=== PATIENT | female | born 1980 | race Caucasian/White ===

== ENCOUNTER 2019-10-02 08:36 | Inpatient (IN) | payer OTHER ==
--- NOTE | 2019-10-02 11:49 | HP ---
General Information - Reason for Visit Prelabor rupture of membranes - General Information Maternal Age: 39 Grav: 3 Para: 1 SAB: 1 IEA: 0 Estimated Due Date: 10/15/19 Maternal Blood Type and Rh: A Positive - Results this Serology/RPR Result: Non-Reactive Rubella Result: Immune HBsAg Result: Negative HIV Result: Negative GBS Culture Result: Negative Past Medical History Delivery History: Hx Uncomplicated Vaginal Delivery Pertinent Past Medical History: See Records Past Medical History Comment: Anorexia, last treated prior to 2014. Osteopenia, r/t hx anorexia Heterozygous Factor V Leiden Pertinent Past Surgical History: None Pertinent Family History: See Records Family History Comment: Mother: Factor V Leiden - Antepartal Records Antepartal Records: Reviewed, Complicated by: - Age 40, Anemia on Fe supplementation, inadequate weight gain Review of Systems Constitutional: Comfortable CV Complaint: No Respiratory: Shortness of Breath: No Gastrointestinal: No Nausea/Vomiting, Normal Bowel Movement Genitourinary: Leaking Fluid, No Dysuria, No Bleeding Musculoskeletal: No Epigastric Pain, Contractions - mild Neurological: No Headache, No Visual Changes Movement: Normal Exam Allergies/Adverse Reactions: Allergies Penicillins Allergy (Verified 10/02/19 09:03) Rash B/P: 118/76, P: 52, R: 18, T: 98.1 Lab Values - Entire Visit: Laboratory Tests 10/02/19 09:35 Vag Amniotic Fld Detect Positive - Measurements Height: 5 ft Weight: 116 lb Weight in lbs: [phone] Body Mass Index (BMI): 22.6 Pre- Weight: 96 lb Weight Gained This : 20 lbs and 0 ozs - Exam Breast: Breast Exam Deferred CVA: No CVA Tenderness Extremities: No Edema Heart: Normal Rhythm/Heart Sounds HEENT: No Significant Findings Lungs: Clear Bilaterally Reflexes: DTR 2+ Thyroid: No Thyromegaly - Abdominal Exam Abdomen Exam: Non-Tender, Fundal Height Consistent with Dates - Ultrasound/Biophysical Profile Ultrasound Status: Not Done Targeted Exam Findings See L&D Outpatient Visit Provider Note for Findings: N/A Estimated Weight: 5.5 lb by nita's Membrane Status: SROM Amniotic Fluid Evaluation: Gross Rupture, Positive ROM Plus Bleeding/Discharge: None EFM Findings - External Monitor Findings Baseline Heart Rate: 130 External Monitor Findings: Accelerations Present, No Pattern of Variable or Late Decelerations, Variability Moderate, Baseline Stable Contractions: Irregular, 45-90 Seconds Assessment/Plan - Assessment A: IUP at 38 1/7 weeks Category I FHR, no evidence of metabolic acidemia GBS negative +SROM Not yet in labor P: Admit to inpatient Reviewed options, including Pitocin augmentation, Cedric prefers to avoid medication at this time. Would like to proceed with nipple stimulation, advised 2 min on, 1 min off x 4, rest 20-30 min, repeat Discussed risks of prolonged rupture of membranes, including chorioamnionitis, NICU admission q2hr temperatures Cervical exam once in active labor or if change in plan of care Reassess 3-4 hrs or sooner as indicated - Plan Plan: Admit - Anticipate Vaginal Delivery - Date/Time of Admission Date of Admission: 10/02/19 Time of Admission: 10:00
[2019-10-02 14:22] LABS: Urine Benzodiazepine Screen None Detected (None Detect); Urine Opiates Screen None Detected (None Detect)
--- NOTE | 2019-10-02 14:50 | PN ---
Progress Note - Progress Note Date of Service: 10/02/19 Note: S: Reports UCs still far apart, but getting stronger. Occasionally having to breathe through them. Notes small amount of blood in vaginal mucous O: B/P: 91/57, P: 56, R: 18, T: 98.9 FHR: 140s by intermittent auscultation UCs: Irregular, mild-moderate to palpation VE deferred A: IUP at 38 1/7 weeks No evidence of metabolic acidemia SROM x 10 hrs and not in active labor P: Revisited possibility of augmentation with either pitocin, cytotec or cervidil; Cedric declines at this time Encouraged position changes, ambulation, ball Continue temperature q2hr Reassess PRN
--- NOTE | 2019-10-02 17:53 | PN ---
Progress Note - Progress Note Date of Service: 10/02/19 Note: S: Still able to talk through UCs, ready for cervical exam to assess progress O: B/P: 91/57, P: 56, R: 18, T: 98.7 FHR: baseline 125, moderate variability, + accelerations, early decelerations UCs: q 2-15 min VE: 1/80/-1, vertex. Clear fluid noted A: IUP at 38 1/7 weeks category I FHR, no evidence of metabolic acidemia early labor ROM x 12.5 hrs P: Discussed implications of early labor, difficulty in assessing how long until baby comes Cedric continues to decline augmentation at this time Benefits of position changes reinforced by RN Reassess PRN Anticipate SVB
--- NOTE | 2019-10-02 20:54 | PN ---
Progress Note - Progress Note Date of Service: 10/02/19 Note: S: Reports UCs getting more intense, were 8-10 minutes, now closer to 3-5 minutes. Having to breathe through contractions. Reports low back pain with UCs as well as some increased pelvic pressure O: B/P: 102/60, P: 55, R: 18, T: 98.9 FHR: 135 by intermittent auscultation VE deferred A: IUP at 38 1/7 weeks No evidence of metabolic acidemia P: Discussed normal course of labor, heat therapy for back pain; counter pressure applied Cedric declines tub for now Encouraged to call if urge to push Reassess PRN Anticipate SVB
[2019-10-02] MEDS ORDERED: Witch Hazel PAD* JAR TOPICAL PRN (21:57)
[2019-10-02] MEDS ORDERED: Dibucaine 1% 28.35 GM TUBE PR PRN (21:57)
[2019-10-02] MEDS ORDERED: Acetaminophen TAB* 325 MG PO PRN (21:57)
[2019-10-02] MEDS ORDERED: Glycerin ADULT SUPP PR PRN (21:57)
[2019-10-02] MEDS ORDERED: Lactated Ringers 1000 ML Bag* 1,000 ML IV SCH (22:00)
--- NOTE | 2019-10-02 22:30 | PROCNOTE ---
[facility] OB: Delivery Note - Delivery A Date of : 10/02/19 Time of : 21:34 Bon[place] Sex: Male Score 1 Minute: 9 Score 5 Minutes: 9 Gestational Age in Weeks and Days at Delivery: 38 Weeks and 1 Days Delivery Method: Spontaneous Vaginal Labor: Spontaneous Did Patient attempt ?: N/A, No Previous Amniotic Fluid: Clear Estimated Blood Loss: 250 Anesthesia/Analgesia: None Delivered By: Jennifer Demarco - Nursery Level of Nursery: Regular/Bedside - Perineum Perineal Injury: Abrasion Only - Not Repaired Perineal Injury Comment: left sublabial Perineal Repair: None - Events Delivery Events of Note: Precipitous Delivery - Additional Delivery Notes Additional Delivery Notes: experienced SROM to clear fluid at 0500. Progressed to complete and complete, began pushing at 2127 in hands-knees. Slow, controlled delivery of head at 2134, AGUILAR. Tight shoulders noted, mother assisted to McRobert's position, shoulders delivered in transverse position with strong maternal effort. Male vigorous, HR > 110, spontaneous cry noted, delivered to maternal abdomen. Spontaneous lulu placenta at 2146, fundus firm with massage. Vagina and perineum carefully inspected, perineum intact and left labial abrasion noted. Hemostatic, no repair necessary. Mother and stable at time of note, feeding plan is breast. EBL = 250 cc
[2019-10-02] MEDS: Ibuprofen TAB* 600 MG PO SCH (22:33)
[2019-10-02] MEDS ORDERED: Ammonia Inhalant* 1 EA AMP ONE (23:31)
[2019-10-03] MEDS: Ibuprofen TAB* 600 MG PO SCH ×2 (07:02→10:50)
[2019-10-03 07:19] LABS: ABS Basophils 0.1 10^3/ul (0-0.2); ABS Eosinophils 0.1 10^3/ul (0-0.6); ABS Lymphocytes 1.3 10^3/ul (1.0-4.8); ABS Monocytes 0.8 10^3/ul (0-0.8); ABS Neutrophils 8.5 10^3/ul (1.5-7.7); Eosinophil % 0.7 %; Hematocrit 35 % (35-47); Hemoglobin 11.8 g/dL (12.0-16.0); Lymphocyte % 12.1 %; Mean Corpuscular HGB Conc 34 g/dL (31-36); Mean Corpuscular Hemoglobin 29 pg (27-31); Mean Corpuscular Volume 85 fL (80-97); Mean Platelet Volume 9.3 fL (7.4-10.4); Platelet Count 167 10^3/uL (150-450); Red Blood Count 4.11 10^6 /uL (3.70-4.87); Red Cell Distribution Width 13 % (10-15); White Blood Count 10.8 10^3/uL (3.5-10.8)
[2019-10-03] MEDS ORDERED: Simethicone TAB* 80 MG TAB.CHEW PO SCH (08:30)
[2019-10-03] MEDS ORDERED: Ferrous Gluconate TAB* 324 MG TAB PO SCH (09:00)
[2019-10-03] MEDS: Docusate CAP* 100 MG PO SCH ×3 (09:01→20:31)
[2019-10-04] MEDS: Ibuprofen TAB* 600 MG PO SCH (08:02)
[2019-10-04] MEDS: Docusate CAP* 100 MG PO SCH (08:10)
[2019-10-04 08:17] VITALS: BP 86/55
[2019-10-04 15:08] LABS: Varicella IgG Antibody Index 5.2; Varicella-Zoster IgG Antibody Positive
== END 2019-10-04 13:08 | disposition home or self-care (01) | DRG 807 ==
LOC: MCHOBOUT 08:36 → MCHOB 10:10
PROVIDERS: ADMIT Midwife; ATTEND Midwife
PROC: 10E0XZZ Delivery of Products of Conception, External Approach (ICD-10-PCS; principal; 2019-10-02)
PROC: 4A1HXCZ Monitoring of Products of Conception, Cardiac Rate, External Approach (ICD-10-PCS; 2019-10-02)
DX: O62.3 Precipitate labor (principal); Z37.0 Single live birth; O76 Abnormality in fetal heart rate and rhythm complicating labor and delivery; O71.89 Other specified obstetric trauma; Z3A.38 38 weeks gestation of pregnancy; Z88.0 Allergy status to penicillin
CPT/HCPCS: 36415; 80307; 84112; 85025; 86787; A9270-GY